=== PATIENT | female | born 1950 | race Caucasian/White ===

== ENCOUNTER 2019-03-28 14:18 | Emergency (ER) | payer MEDICARE ==
[2019-03-28 14:38] VITALS: RESP 18; TEMP 98.1
[2019-03-28] MEDS ORDERED: GELATIN SPONGE,ABSORB (LARGE) 1 EACH SPONGE TOPICAL STA (15:19)
[2019-03-28] MEDS ORDERED: SILVER NITRATE APPLICATOR 1 EACH STICK..EA. TOPICAL STA (15:19)
[2019-03-28 15:44] LABS: Basophils % (A) 1 %; Eosinophils # (A) 0.1 k/uL (0-0.7); Eosinophils % (A) 2 %; HCT 40.8 % (34.0-46.0); HGB 12.8 gm/dL (11.4-16.0); Lymphocytes # (A) 0.5 k/uL (1.0-4.8); Lymphocytes % (A) 11 %; MCH 32.6 pg (25.0-35.0); MCHC 31.4 g/dL (31.0-37.0); MCV 103.7 fL (80.0-100.0); Macrocytosis Moderate; Mean Platelet Volume 7.9; Monocytes # (A) 0.4 k/uL (0-1.0); Monocytes % (A) 8 %; Neutrophils # (A) 3.4 k/uL (1.3-7.7); Neutrophils % (A) 74 %; Platelet Count 157 k/uL (150-450); RBC 3.94 m/uL (3.80-5.40); RDW 15.4 % (11.5-15.5); WBC 4.6 k/uL (3.8-10.6)
[2019-03-28 15:53] LABS: INR 1.2 (<1.2); Partial Thromboplastin Time 27.1 sec (22.0-30.0); Prothrombin Time 12.2 sec (9.0-12.0)
--- NOTE | 2019-03-28 16:17 | ED ---
General Adult HPI - General Chief complaint: Recheck/Abnormal Lab/Rx Stated complaint: Left Arm Injury/Open Wound Time Seen by Provider: 03/28/19 14:47 Source: patient, family, RN notes reviewed, old records reviewed Mode of arrival: ambulatory Limitations: no limitations - History of Present Illness Initial comments: Patient is a 68-year-old female presents emergency department today for evaluation for a skin tear approximately one week old after she tripped and fell. At that time she was seen at urgent care. They discussed there is no skin to close the open skin tear. Discussed that she has just keep it covered. Patient states that it's had some continuous bleeding for the past week off and on. Patient reports that she is originally from [place]. She is here in [place] on vacation. Family is also concerned because Patient does have h istory of bruising in the past and they're concerned that she may have abnormal platelet levels. Patient denies any recent fever, chills, shortness of breath, chest pain, back pain, abdominal pain, nausea vomiting, numbness or tingling, dysuria or hematuria, constipation or diarrhea, headaches or visual changes, or any other current symptoms - Related Data Allergies Allergy/AdvReac Type Severity Reaction Status Date / Time No Known Allergies Allergy Verified 03/28/19 14:38 Review of Systems ROS Statement: Those systems with pertinent positive or pertinent negative responses have been documented in the HPI. ROS Other: All systems not noted in ROS Statement are negative. Past Medical History Past Medical History: Cancer, GI Bleed, Hypertension, Seizure Disorder Additional Past Medical History / Comment(s): lung ca remission, History of Any Multi-Drug Resistant Organisms: None Reported Past Surgical History: Adenoidectomy, Joint Replacement, Tonsillectomy Past Psychological History: No Psychological Hx Reported Smoking Status: Former smoker Past Alcohol Use History: Occasional Past Drug Use History: None Reported General Exam Limitations: no limitations General appearance: alert, in no apparent distress Head exam: Present: atraumatic, normocephalic, normal inspection Eye exam: Present: normal appearance, PERRL, EOMI. Absent: scleral icterus, conjunctival injection, periorbital swelling ENT exam: Present: normal exam, mucous membranes moist Neck exam: Present: normal inspection. Absent: tenderness, meningismus, lymphadenopathy Respiratory exam: Present: normal lung sounds bilaterally Cardiovascular Exam: Present: regular rate, normal rhythm, normal heart sounds. Absent: systolic murmur, diastolic murmur, rubs, gallop, clicks GI/Abdominal exam: Present: soft, normal bowel sounds. Absent: distended, tenderness, guarding, rebound, rigid Extremities exam: Present: normal inspection, full ROM, normal capillary refill, other (Patient is a 4 cm x 3 cm evidence of skin and tear over the distal left forearm. Area of some bleeding blood vessels site. Patient has no sign of infection, swelling or redness noted.). Absent: tenderness, pedal edema, joint swelling, calf tenderness Back exam: Present: normal inspection Neurological exam: Present: alert, oriented X3, CN II-XII intact Psychiatric exam: Present: normal affect, normal mood Skin exam: Present: warm, dry, intact, normal color. Absent: rash Course Vital Signs 03/28/19 03/28/19 14:31 16:30 Temperature 98.1 F 98.1 F Pulse Rate 90 83 Respiratory 18 18 Rate Blood Pressure 117/71 133/80 O2 Sat by Pulse 99 96 Oximetry Procedures - Procedures Initial comment: I cleansed the area of skin tear with iodine. I used 1 stick of silver nitrate to cauterize the bleeding superficial blood vessels. Hemostasis completed. Would was then dressed with bacitracin and sterile gauze dressings. Medical Decision Making - Medical Decision Making Patient is a 68-year-old female presents emergency rooms today for concern for a skin tear to continue to bleed for the past week after it occurred. Patient has a 4 cm x 3 7 m area of open tissue over the left forearm. She has some bleeding capillaries at the site and then coagulated this time. He used silver nitrate over the area to stop the bleeding. Wound was thoroughly cleansed and then dressed with gauze dressing. Discussed Patient may need to follow-up with a wound care center. Patient still is concerned she may have abnormal lab levels with this continuous bleeding and abnormal bruising. Platelets and CBC are unremarkable. Coag studies are within normal limits. I discussed return parameters. - Lab Data Result diagrams: 03/28/19 15:33 Lab Results 03/28/19 03/28/19 Range/Units 15:33 15:33 WBC 4.6 (3.8-10.6) k/uL RBC 3.94 (3.80-5.40) m/uL Hgb 12.8 (11.4-16.0) gm/dL Hct 40.8 (34.0-46.0) % MCV 103.7 H (80.0-100.0) fL MCH 32.6 (25.0-35.0) pg MCHC 31.4 (31.0-37.0) g/dL RDW 15.4 (11.5-15.5) % Plt Count 157 (150-450) k/uL Neutrophils % 74 % Lymphocytes % 11 % Monocytes % 8 % Eosinophils % 2 % Basophils % 1 % Neutrophils # 3.4 (1.3-7.7) k/uL Lymphocytes # 0.5 L (1.0-4.8) k/uL Monocytes # 0.4 (0-1.0) k/uL Eosinophils # 0.1 (0-0.7) k/uL Basophils # 0.0 (0-0.2) k/uL Macrocytosis Moderate PT 12.2 H (9.0-12.0) sec INR 1.2 H (<1.2) APTT 27.1 (22.0-30.0) sec Disposition Clinical Impression: Skin tear of left forearm without complication Disposition: HOME SELF-CARE Condition: Good Instructions (If sedation given, give patient instructions): Skin Tear (ED) Additional Instructions: Patient is advised to follow-up with her primary care physician when you return to [place]. Keep the dressing covered over the arm for the next 48 hours. Patient is advised to keep a sore and wrap dressing over the area to avoid getting wet. Patient can reach change dressing in 2 days. Return to the emergency department if any alarming signs or symptoms occur. Patient is admitted follow up with self pay specialist upon returning home. Is patient prescribed a controlled substance at d/c from ED?: No Referrals: None,Stated [Primary Care Provider] - 1-2 days Time of Disposition: 16:17
[2019-03-28 16:31] VITALS: BP 133/80; PULSE 83
== END 2019-03-28 16:31 | disposition home or self-care (01) ==
LOC: EC 14:18
DX: S51.812A Laceration without foreign body of left forearm, initial encounter (principal); Z87.891 Personal history of nicotine dependence; W01.0XXA Fall on same level from slipping, tripping and stumbling without subsequent striking against object, initial encounter; Y93.01 Activity, walking, marching and hiking
CPT/HCPCS: 12002; 36415; 85025; 85610; 85730; 99283